=== PATIENT | female | born 1960 | race Caucasian/White ===

== ENCOUNTER → 2017-11-03 | Outpatient (CLI) | payer MEDICARE ==
--- NOTE | 2017-11-03 16:18 | RADIOLOGY REPORT (SQ) ---
EXAM DESCRIPTION: CT LUNG CANCER SCREENING COMPLETED DATE/TIME: 11/03/2017 1:53 pm REASON FOR STUDY: NICOTINE DEPENDENCE, CIGARETTES, UNCOMPLICATED F17.210 NICOTINE DEPENDENCE, CIGAR ETTES, UNCOMPLICATED Has the patient had a Chest CT scan within the past year? No Was the patient offered tobacco cessation counseling? Yes Was the patient engaged in shared decision making for this test? Does the patient have signs or symptoms of Lung Cancer? No Is the patient a smoker? Yes How many packs per year? 540 How many years since quitting smoking? Not applicable Patients age: 56 COMPARISON: None. TECHNIQUE: Low Dose CT scan performed of the chest without intravenous contrast for purposes of scre ening for lung cancer. Images reviewed with lung, soft tissue and bone windows. Reconstructed coron al and sagittal MPR images reviewed. All images stored on PACS. All CT scanners at this facility use dose modulation, iterative reconstruction, and/or weight based d osing when appropriate to reduce radiation dose to as low as reasonably achievable (ALARA). [facility]: Dose Right [facility]: CareDose [facility]: Dose Right [facility]: Teradose 4D [facility]: Smart Site Tour RADIATION DOSE: CT Rad equipment meets quality standard of care and radiation dose reduction techniq ues were employed. CTDIvol: 2.1 mGy. DLP: 74 mGy-cm. mGy. . LIMITATIONS: None FINDINGS: LUNGS AND PLEURA: No masses or nodules. No pleural effusions or calcifications. No pne umothorax. No significant scarring or interstitial changes. HILAR AND MEDIASTINAL STRUCTURES: No identified masses. No abnormal nodes. HEART AND VASCULAR STRUCTURES: No aortic aneurysm. No pericardial effusion. No cardiac devices. CORONARY ARTERY CALCIFICATIONS: No significant calcifications. UPPER ABDOMEN, THYROID, BONES, OTHER SOFT TISSUES: No significant findings. IMPRESSION: NO SIGNIFICANT FINDING IN THE LUNGS ON NON-CONTRASTED CHEST CT. NO OTHER CLINICALLY SIGNIFICANT/POTENTIALLY CLINICALLY SIGNIFICANT FINDINGS LUNGRADS: LUNGRADS: 1 NEGATIVE. NO NODULES, OR DEFINITELY BENIGN NODULES MODIFIER: NONE RECOMMENDATION: Continue annual screening with LDCT in 12 months. COMMENT: CRITERIA: No lung nodules. Nodules with specific calcifications: Complete, central, popcorn, concentric rings and fat containin g nodules. TECHNICAL DOCUMENTATION: JOB ID: [id number] Quality ID # 436: Final reports with documentation of one or more dose reduction techniques (e.g., Au tomated exposure control, adjustment of the mA and/or kV according to patient size, use of iterative reconstruction technique) 2010 [facility] Radiology Reading location - IP/workstation name: [email or web address]
== END ==
LOC: RAD 13:42
PROVIDERS: ATTEND Internal Medicine
DX: F17.210 Nicotine dependence, cigarettes, uncomplicated (principal)
CPT/HCPCS: G0297

== ENCOUNTER 2018-04-24 03:34 | Inpatient (IN) | payer MEDICARE ==
--- NOTE | 2018-04-24 04:47 | RADIOLOGY REPORT (SQ) ---
EXAM DESCRIPTION: XR CHEST 2 VIEWS COMPLETED DATE/TME: 04/24/2018 04:12 CLINICAL HISTORY: 57 years, Female, cough, hemoptysis COMPARISON: None. NUMBER OF VIEWS: 2 TECHNIQUE: Frontal and lateral views of the chest LIMITATIONS: None. FINDINGS: The heart size is normal. Postsurgical change of the cervical spine. Lungs are clear. No pneumothorax IMPRESSION: No acute cardiopulmonary process copyright 2010 [employer]- All Rights Reserved
[2018-04-24 05:03] LABS: ABSOLUTE BASOPHILS # (AUTO) 0.1 10^3/uL (0.0-0.2); ABSOLUTE EOSINOPHILS # (AUTO) 0.1 10^3/uL (0.0-0.6); ABSOLUTE LYMPHOCYTES (AUTO) 1.8 10^3/uL (0.5-4.7); ABSOLUTE MONOCYTES (AUTO) 0.7 10^3/uL (0.1-1.4); BASOPHILS % (AUTO) 0.9 % (0-2); EOSINOPHILS % (AUTO) 1.3 % (0-6); HEMATOCRIT 37.9 % (36.0-47.0); HEMOGLOBIN 13.3 g/dL (12.0-15.5); LYMPHOCYTES % (AUTO) 26.7 % (13-45); MEAN CORPUSCULAR HEMOGLOBIN 34.3 pg (27.0-33.4); MEAN CORPUSCULAR HGB CONC 35.2 g/dL (32.0-36.0); MEAN CORPUSCULAR VOLUME 97 fl (80-97); MONOCYTES % (AUTO) 10.7 % (3-13); PLATELET COUNT 279 10^3/uL (150-450); RED BLOOD COUNT 3.89 10^6/uL (3.72-5.28); RED CELL DISTRIBUTION WIDTH 13.5 % (11.5-14.0); SEGMENTED NEUTROPHILS % (AUTO) 60.4 % (42-78); TOTAL CELLS COUNTED % (AUTO) 100 %; WHITE BLOOD COUNT 6.6 10^3/uL (4.0-10.5)
[2018-04-24 05:46] LABS: ANION GAP 12 (5-19); BLOOD UREA NITROGEN 20 mg/dL (7-20); CALCIUM 9.4 mg/dL (8.4-10.2); CARBON DIOXIDE 31 mmol/L (22-30); CHLORIDE 97 mmol/L (98-107); GLUCOSE 112 mg/dL (75-110); POTASSIUM 3.7 mmol/L (3.6-5.0)
[2018-04-24] MEDS ORDERED: IPRATROPIUM/ALBUTEROL 0.5-2.5 MG/3 ML AMPUL NEB ONE (06:00)
--- NOTE | 2018-04-24 06:28 | ER Document Report ---
ED General - General Chief Complaint: Cough Stated Complaint: COUGHING BLOOD Time Seen by Provider: 04/24/18 04:12 Mode of Arrival: Ambulatory Information source: Patient Notes: Patient is a 57-year-old female who presents to the emergency department today with chief complaint of coughing up blood. Patient reports that a few hours prior to arrival she coughed up bright red blood. She states that she has a history of COPD, states that over the last several days she has had a productive cough. Denies any fevers. Denies ever coughing up blood previously. Patient denies any chest pain. TRAVEL OUTSIDE OF THE [place] IN LAST 30 DAYS: No - Related Data Allergies/Adverse Reactions: No Known Allergies Allergy (Unverified 04/24/18 03:38) Past Medical History - General Information source: Patient - Social History Smoking Status: Current Every Day Smoker Chew tobacco use (# tins/day): No Frequency of alcohol use: Social Drug Abuse: None Family History: Reviewed & Not Pertinent Patient has suicidal ideation: No Patient has homicidal ideation: No - Past Medical History Cardiac Medical History: Reports: Hx Hypertension Pulmonary Medical History: Reports: Hx COPD Renal/ Medical History: Denies: Hx Peritoneal Dialysis Past Surgical History: Reports: Hx Hysterectomy, Hx Orthopedic Surgery - 2 discs in neck, Hx Tubal Ligation Review of Systems - Review of Systems Respiratory: Cough, Hemoptysis -: Yes All other systems reviewed and negative Physical Exam - Vital signs Vitals: Temp Pulse Resp BP Pulse Ox 97.9 F 108 H 20 150/72 H 94 04/24/18 03:41 04/24/18 03:41 04/24/18 03:41 04/24/18 03:41 04/24/18 03:41 - Notes Notes: PHYSICAL EXAMINATION: GENERAL: Well-appearing, well-nourished and in no acute distress. HEAD: Atraumatic, normocephalic. EYES: Pupils equal round and reactive to light, extraocular movements intact, conjunctiva are normal. ENT: Nares patent, oropharynx clear without exudates. Moist mucous membranes. NECK: Normal range of motion, supple without lymphadenopathy LUNGS: Mild expiratory wheezes noted bilaterally. No respiratory distress noted , no increased work of breathing. HEART: Regular rate and rhythm without murmurs ABDOMEN: Soft, nontender, nondistended abdomen. No guarding, no rebound. No masses appreciated. Female : No CVA tenderness Musculoskeletal: Normal range of motion, no pitting or edema. No cyanosis. NEUROLOGICAL: Cranial nerves grossly intact. Normal speech, normal gait. Normal sensory, motor exams PSYCH: Normal mood, normal affect. SKIN: Warm, Dry, normal turgor, no rashes or lesions noted. Course - Re-evaluation Re-evalutation: 04/24/18 06:23 CBC and chemistry are unremarkable. Chest x-ray with no acute findings. Patient now has bring in the bloody napkin from the car in which she had coughed up the blood into. There is probably 15 mL's of blood in the napkin. Nursing staff did place patient on 2 L of oxygen via nasal cannula. They stated that her oxygen saturation had dropped to 88% while asleep. Pulse ox currently ranging 93-96% on 2 L nasal cannula. Discussed case with Dr. Yanique Mcconnell who recommends performing a CTA to rule out an acute hemorrhage. Patient updated on plan of care and is agreeable to same. 04/24/18 07:14 No acute hemorrhage noted on CTA. There were groundglass opacities noted and imaging was consistent with pneumonitis. I contacted Dr. Griggs the patient' s primary care provider who agrees to admit the patient to the IMCU. - Vital Signs Vital signs: Temp Pulse Resp BP Pulse Ox 97.9 F 108 H 20 150/72 H 94 04/24/18 03:41 04/24/18 03:41 04/24/18 03:41 04/24/18 03:41 04/24/18 03:41 - Laboratory Result Diagrams: 04/24/18 04:42 04/24/18 04:42 Laboratory results interpreted by me: 04/24/18 04/24/18 04:42 04:42 [facility] 34.3 H Chloride 97 L Carbon Dioxide 31 H Glucose 112 H Discharge - Discharge Clinical Impression: COPD exacerbation, Pneumonitis, Oxygen requirement Condition: Stable Disposition: ADMITTED INPATIENT Admitting Provider: Asa Unit Admitted: [facility] Referrals: CECIL GRIGGS MD [Primary Care Provider] - Follow up as needed
--- NOTE | 2018-04-24 06:56 | RADIOLOGY REPORT (SQ) ---
EXAM DESCRIPTION: CT CHEST ANGIOGRAPHY WITHOUT THEN WITH IV CONTRAST COMPLETED DATE/TME: 04/24/2018 06:16 CLINICAL HISTORY: 57 years, Female, hemoptysis COMPARISON: None. TECHNIQUE: 550 Images stored on PACS. All CT scanners at this facility use dose modulation, iterative reconstruction, and/or weight based dosing when appropriate to reduce radiation dose to as low as reasonably achievable (ALARA). [facility]: Dose Right [facility]: CareDose [facility]: Dose Right [facility]: Teradose 4D [facility]: [employer] LIMITATIONS: None. FINDINGS: The mediastinal vasculature enhances normally however there is a suboptimal contrast bolus of the pulmonary arterial tree. No large or central pulmonary embolus. Evaluation of distal arterial branches is significantly limited. Negative for thoracic aortic aneurysm or dissection. No mediastinal or hilar adenopathy. Small hiatal hernia. Heart and pericardium are unremarkable. Limited evaluation of the upper abdomen shows fatty infiltrate of change to the liver. Bilateral renal cortical scar formation. Osseous structures are grossly intact. No pneumothorax. Airspace opacities in the perihilar regions bilaterally and in the left upper lobe where there is some associated bronchiectasis and bronchial wall thickening. No effusion. No pneumothorax IMPRESSION: Suboptimal contrast bolus however no convincing evidence for pulmonary embolus. Negative for thoracic aortic aneurysm or dissection. Groundglass opacities bilaterally with bronchiectasis and bronchial wall thickening in the left upper lobe. Findings likely reflect pneumonitis. Recommend follow-up to resolution. TECHNICAL DOCUMENTATION: Quality ID # 436: Final reports with documentation of one or more dose reduction techniques (e.g., Automated exposure control, adjustment of the mA and/or kV according to patient size, use of iterative reconstruction technique) copyright 2011 [employer]- All Rights Reserved
[2018-04-24] MEDS ORDERED: METHYLPREDNISOLONE INJ 125 MG/2 ML SDV IV ONE (07:04)
[2018-04-24] MEDS ORDERED: OXYCODONE-ACETAMINOPHEN 5-325 MG TABLET PO ONE (07:24)
[2018-04-24] MEDS ORDERED: ALBUTEROL SULFATE 0.083% NEB 2.5 MG/3 ML AMPUL NEB PRN (08:20)
--- NOTE | 2018-04-24 09:10 | EKG REPORT ---
SEVERITY:- NORMAL ECG - SINUS RHYTHM : Confirmed by: Katherine Llanes 24-Apr-2018 09:09:40
[2018-04-24 10:11] LABS: ARTERIAL BLOOD BASE EXCESS 2.3 mmol/L; ARTERIAL BLOOD H2CO3 1.23 mmol/L (1.05-1.35); ARTERIAL BLOOD HCO3 26.7 mmol/L (20-24); ARTERIAL BLOOD O2 SATURATION 95.5 % (94-98); ARTERIAL BLOOD PCO2 40.7 mmHg (35-45); ARTERIAL BLOOD PH 7.44 (7.35-7.45); ARTERIAL BLOOD PO2 75.2 mmHg (80-100)
[2018-04-24 10:12] LABS: ARTERIAL BLOOD FIO2 2L
[2018-04-24] MEDS ORDERED: CEFTRIAXONE 1 GM/D5W RTU 1 GM/50 ML RTUPB IV SCH (11:00)
[2018-04-24] MEDS: ENOXAPARIN SODIUM INJ 40 MG/0.4 ML DISP.SYRIN SUBCUT SCH (11:28)
[2018-04-24] MEDS: IPRATROPIUM BROMIDE 0.02% NEB 0.5 MG/2.5 ML AMPUL NEB SCH ×5 (11:29→22:36)
[2018-04-24] MEDS ORDERED: (PENDING PHARMACY ID) (Amlodipine Besylate/Benazepril [Amlodipine-Benazepril 10-40 Mg] 1 C PO SCH (13:15)
[2018-04-24] MEDS: LEVOFLOXACIN 750 MG/D5W RTU 750 MG/150 ML RTUPB IV SCH (13:42)
[2018-04-24] MEDS: BENAZEPRIL HCL 10 MG TABLET PO SCH (15:19)
[2018-04-24] MEDS: METHADONE HCL 10 MG TABLET PO SCH ×2 (15:20→21:49)
[2018-04-24] MEDS: AMLODIPINE BESYLATE 10 MG TABLET PO SCH (15:20)
[2018-04-24] MEDS: OXYCODONE-ACETAMINOPHEN 5-325 MG TABLET PO PRN (18:43)
[2018-04-24] MEDS: NORMAL SALINE 1000 ML 1,000 ML IV PRN (18:44)
[2018-04-24] MEDS ORDERED: ZOLPIDEM TARTRATE 5 MG TABLET PO PRN (20:46)
[2018-04-24] MEDS: GABAPENTIN 300 MG CAPSULE PO SCH (21:49)
--- NOTE | 2018-04-24 21:59 | PDOC H&P ---
History of Present Illness Admission Date/PCP: 04/24/18 07:28 CECIL GRIGGS MD History of Present Illness: REZA SMITH is a 57 year old female, A smoker, she came to the emergency room for evaluation of 2-day history of hemoptysis, CTA chest was done, negative for pulmonary embolus but it demonstrated bronchiectasis with bilateral groundglass opacities that suggest pneumonitis.ABG on FiO2 of 2l pH 7.4, PO2 75.2 bicarbonate 26.7,PCO2 40.7.PaO2/ FiO2 ratio is less than 200 suggesting significant hypoxemia Past Medical History Cardiac Medical History: Reports: Hypertension Pulmonary Medical History: Reports: Chronic Obstructive Pulmonary Disease (COPD) Psychiatric Medical History: Reports: Depression Past Surgical History Past Surgical History: Reports: Hysterectomy, Orthopedic Surgery - 2 discs in neck, Tubal Ligation Social History Smoking Status: Current Every Day Smoker Frequency of Alcohol Use: Rare Hx Recreational Drug Use: No Hx Prescription Drug Abuse: No - Advance Directive Resuscitation Status: Full Code Family History Family History: Reviewed & Not Pertinent Parental Family History Reviewed: Yes Children Family History Reviewed: Yes Sibling(s) Family History Reviewed.: Yes Medication/Allergy Home Medications: Amlodipine Besylate/Benazepril [Amlodipine-Benazepril 10-40 mg] 1 cap PO DAILY 04/24/18 Gabapentin [Neurontin 300 mg Capsule] 300 mg PO QHS 04/24/18 Methadone HCl [Dolophine 10 Mg Tablet] 10 mg PO TID 04/24/18 RX: Fluoxetine HCl [Prozac] 40 mg PO DAILY 04/24/18 RX: Omeprazole 20 mg PO DAILY 04/24/18 RX: Oxycodone HCl/Acetaminophen [Percocet 5-325 mg Tablet] 1 tab PO Q6HP PRN 08/07 Allergies/Adverse Reactions: No Known Allergies Allergy (Unverified 04/24/18 03:38) Review of Systems Constitutional: ABSENT: chills, fever(s), headache(s), weight gain, weight loss Eyes: ABSENT: visual disturbances Ears: ABSENT: hearing changes Cardiovascular: ABSENT: chest pain, dyspnea on exertion, edema, orthropnea, palpitations Respiratory: PRESENT: cough, dyspnea, hemoptysis Gastrointestinal: ABSENT: abdominal pain, constipation, diarrhea, hematemesis, hematochezia, nausea, vomiting Genitourinary: ABSENT: dysuria, hematuria Musculoskeletal: ABSENT: joint swelling Integumentary: ABSENT: rash, wounds Neurological: ABSENT: abnormal gait, abnormal speech, confusion, dizziness, focal weakness, syncope Psychiatric: ABSENT: anxiety, depression, homidical ideation, suicidal ideation Endocrine: ABSENT: cold intolerance, heat intolerance, menstrual abnormalities, polydipsia, polyuria Hematologic/Lymphatic: ABSENT: easy bleeding, easy bruising, lymphadenopathy Physical Exam Vital Signs: Temp Pulse Resp BP Pulse Ox 97.9 F 87 20 134/68 H 97 04/24/18 20:54 04/24/18 20:54 04/24/18 20:54 04/24/18 20:54 04/24/18 20:54 Intake & Output 04/23/18 04/24/18 04/25/18 06:59 06:59 06:59 Intake Total 400 Balance 400 Weight 74.3 kg General appearance: PRESENT: no acute distress Head exam: PRESENT: atraumatic, normocephalic Eye exam: PRESENT: PERRLA Mouth exam: PRESENT: moist Neck exam: PRESENT: full ROM Respiratory exam: PRESENT: crackles, rhonchi Cardiovascular exam: PRESENT: +S1, +S2 Vascular exam: PRESENT: normal capillary refill GI/Abdominal exam: PRESENT: normal bowel sounds, soft Rectal exam: PRESENT: deferred Neurological exam: PRESENT: alert, CN II-XII grossly intact Psychiatric exam: PRESENT: appropriate affect, normal mood Skin exam: PRESENT: dry, intact, warm Results Laboratory Results: 04/24/18 09:48 Carbonic Acid 1.23 HCO3/H2CO3 Ratio 21:1 ABG pH 7.44 ABG pCO2 40.7 ABG pO2 75.2 L ABG HCO3 26.7 H ABG O2 Saturation 95.5 ABG Base Excess 2.3 FiO2 2L 04/24/18 09:48 CK-MB (CK-2) 1.09 Impressions: Chest X-Ray 04/24/18 04:12 IMPRESSION: No acute cardiopulmonary process copyright 2011 [employer]- All Rights Reserved Chest/Abdomen CTA 04/24/18 06:16 IMPRESSION: Suboptimal contrast bolus however no convincing evidence for pulmonary embolus. Negative for thoracic aortic aneurysm or dissection. Groundglass opacities bilaterally with bronchiectasis and bronchial wall thickening in the left upper lobe. Findings likely reflect pneumonitis. Recommend follow-up to resolution. TECHNICAL DOCUMENTATION: Quality ID # 436: Final reports with documentation of one or more dose reduction techniques (e.g., Automated exposure control, adjustment of the mA and/or kV according to patient size, use of iterative reconstruction technique) copyright 2011 [employer]- All Rights Reserved Assessment & Plan - Diagnosis (1) Pneumonitis Is this a current diagnosis for this admission?: Yes Plan: Start IV antibiotic to cover acquired pneumonia, the hemoptysis is most likely due to pneumonia (2) Bronchiectasis Qualifiers: Bronchiectasis type: with acute exacerbation Qualified Code(s): J47.1 - Bronchiectasis with (acute) exacerbation Is this a current diagnosis for this admission?: Yes (3) Nicotine dependence, cigarettes, uncomplicated Is this a current diagnosis for this admission?: Yes
[2018-04-25] MEDS: IPRATROPIUM BROMIDE 0.02% NEB 0.5 MG/2.5 ML AMPUL NEB SCH ×8 (02:16→22:47)
[2018-04-25] MEDS: LANSOPRAZOLE 15 MG TAB.RAP.DR PO SCH (05:29)
[2018-04-25] MEDS: METHADONE HCL 10 MG TABLET PO SCH ×3 (05:29→21:17)
[2018-04-25] MEDS: BENAZEPRIL HCL 10 MG TABLET PO SCH (09:06)
[2018-04-25] MEDS: ENOXAPARIN SODIUM INJ 40 MG/0.4 ML DISP.SYRIN SUBCUT SCH (09:06)
[2018-04-25] MEDS: FLUOXETINE HCL 20 MG CAPSULE PO SCH (09:07)
[2018-04-25] MEDS: NORMAL SALINE 1000 ML 1,000 ML IV PRN (09:07)
[2018-04-25] MEDS: CEFTRIAXONE SODIUM 1,000 MG in DEXTROSE 5%-WATER 50 ML IV SCH (09:07)
[2018-04-25] MEDS: AMLODIPINE BESYLATE 10 MG TABLET PO SCH (09:07)
[2018-04-25] MEDS: OXYCODONE-ACETAMINOPHEN 5-325 MG TABLET PO PRN ×2 (09:18→16:10)
[2018-04-25] MEDS: LEVOFLOXACIN 750 MG/D5W RTU 750 MG/150 ML RTUPB IV SCH (12:31)
--- NOTE | 2018-04-25 19:44 | PDOC PROGRESS REPORT ---
Subjective Progress Note for:: 04/25/18 Subjective:: Patient was admitted yesterday for evaluation and management of hemoptysis, she has less cough today. Reason For Visit: PNEUMONIA,HEMOPTYSIS,COPD Physical Exam Vital Signs: Temp Pulse Resp BP Pulse Ox 97.4 F 92 16 135/64 H 97 04/25/18 16:14 04/25/18 16:14 04/25/18 16:14 04/25/18 16:14 04/25/18 16:14 Intake & Output 04/24/18 04/25/18 04/26/18 06:59 06:59 06:59 Intake Total 400 2816 Output Total 3 Balance 400 2813 Weight 74.3 kg 76.8 kg General appearance: PRESENT: no acute distress Eye exam: PRESENT: PERRLA Respiratory exam: PRESENT: crackles, rhonchi Cardiovascular exam: PRESENT: +S1, +S2 GI/Abdominal exam: PRESENT: soft Neurological exam: PRESENT: alert, CN II-XII grossly intact Results Laboratory Results: 04/24/18 09:48 CK-MB (CK-2) 1.09 Impressions: Chest X-Ray 04/24/18 04:12 IMPRESSION: No acute cardiopulmonary process copyright 2011 [employer]- All Rights Reserved Chest/Abdomen CTA 04/24/18 06:16 IMPRESSION: Suboptimal contrast bolus however no convincing evidence for pulmonary embolus. Negative for thoracic aortic aneurysm or dissection. Groundglass opacities bilaterally with bronchiectasis and bronchial wall thickening in the left upper lobe. Findings likely reflect pneumonitis. Recommend follow-up to resolution. TECHNICAL DOCUMENTATION: Quality ID # 436: Final reports with documentation of one or more dose reduction techniques (e.g., Automated exposure control, adjustment of the mA and/or kV according to patient size, use of iterative reconstruction technique) copyright 2011 [employer]- All Rights Reserved Assessment & Plan - Diagnosis (1) Pneumonitis Is this a current diagnosis for this admission?: Yes Plan: Continue antibiotic (2) Bronchiectasis Qualifiers: Bronchiectasis type: with acute exacerbation Qualified Code(s): J47.1 - Bronchiectasis with (acute) exacerbation Is this a current diagnosis for this admission?: Yes (3) Nicotine dependence, cigarettes, uncomplicated Is this a current diagnosis for this admission?: Yes
[2018-04-25] MEDS: GABAPENTIN 300 MG CAPSULE PO SCH (21:17)
[2018-04-26] MEDS: IPRATROPIUM BROMIDE 0.02% NEB 0.5 MG/2.5 ML AMPUL NEB SCH ×5 (02:25→14:44)
[2018-04-26] MEDS: METHADONE HCL 10 MG TABLET PO SCH ×2 (05:35→13:14)
[2018-04-26] MEDS: LANSOPRAZOLE 15 MG TAB.RAP.DR PO SCH (05:36)
[2018-04-26] MEDS: BENAZEPRIL HCL 10 MG TABLET PO SCH (10:27)
[2018-04-26] MEDS: CEFTRIAXONE SODIUM 1,000 MG in DEXTROSE 5%-WATER 50 ML IV SCH (10:27)
[2018-04-26] MEDS: ENOXAPARIN SODIUM INJ 40 MG/0.4 ML DISP.SYRIN SUBCUT SCH (10:27)
[2018-04-26] MEDS: AMLODIPINE BESYLATE 10 MG TABLET PO SCH (10:27)
[2018-04-26] MEDS: FLUOXETINE HCL 20 MG CAPSULE PO SCH (10:27)
[2018-04-26] MEDS: OXYCODONE-ACETAMINOPHEN 5-325 MG TABLET PO PRN (10:33)
[2018-04-26] MEDS: LEVOFLOXACIN 750 MG/D5W RTU 750 MG/150 ML RTUPB IV SCH (12:36)
[2018-04-26] MEDS ORDERED: LEVOFLOXACIN 750 MG TABLET PO SCH (13:00)
--- NOTE | 2018-04-26 15:03 | PDOC DISCHARGE SUMMARY ---
General - Admit/Disc Date/PCP Admission Date/Primary Care Provider: 04/24/18 07:28 CECIL GRIGGS MD Discharge Date: 04/26/18 - Discharge Diagnosis (1) Pneumonitis Is this a current diagnosis for this admission?: Yes (2) Bronchiectasis Is this a current diagnosis for this admission?: Yes (3) Nicotine dependence, cigarettes, uncomplicated Is this a current diagnosis for this admission?: Yes - Additional Information Resuscitation Status: Full Code Prescriptions: Alprazolam [Xanax] 1 mg PO BID #60 tablet Levofloxacin [Levaquin 750 mg Tablet] 750 mg PO DAILY #10 tablet Home Medications: Amlodipine Besylate/Benazepril [Amlodipine-Benazepril 10-40 mg] 1 cap PO DAILY 04/24/18 Fluoxetine HCl [Prozac] 40 mg PO DAILY 04/24/18 Gabapentin [Neurontin 300 mg Capsule] 300 mg PO QHS 04/24/18 Methadone HCl [Dolophine 10 mg Tablet] 10 mg PO TID 04/24/18 Omeprazole 20 mg PO DAILY 04/24/18 Oxycodone HCl/Acetaminophen [Percocet 5-325 mg Tablet] 1 tab PO Q6HP PRN Alprazolam [Xanax] 1 mg PO BID #60 tablet 04/26/18 Levofloxacin [Levaquin 750 mg Tablet] 750 mg PO DAILY #10 tablet 04/26/18 History of Present Illness History of Present Illness: REZA SMITH is a 57 year old female, A smoker, she came to the emergency room for evaluation of 2-day history of hemoptysis, CTA chest was done, negative for pulmonary embolus but it demonstrated bronchiectasis with bilateral groundglass opacities that suggest pneumonitis.ABG on FiO2 of 2l pH 7.4, PO2 75.2 bicarbonate 26.7,PCO2 40.7.PaO2/ FiO2 ratio is less than 200 suggesting significant hypoxemia Hospital Course Hospital Course: Patient was admitted for the management of pneumonia, she was treated with IV antibiotic, Levaquin and ceftriaxone. She has underlying bronchiectasis and COPD, a vivid smoker. She responded to antibiotic, she improved in 24 hours of admission, she is been discharged home today to continue p.o. medication she was advised strongly of the need for complete smoking cessation. Physical Exam Vital Signs: Temp Pulse Resp BP Pulse Ox 98.2 F 99 16 123/66 93 04/26/18 09:02 04/26/18 14:45 04/26/18 14:45 04/26/18 09:02 04/26/18 14:45 Intake & Output 04/25/18 04/26/18 04/27/18 06:59 06:59 06:59 Intake Total 400 2816 600 Output Total 3 1 Balance 400 2813 599 Weight 74.3 kg 77 kg General appearance: PRESENT: no acute distress, well-developed, well-nourished Head exam: PRESENT: atraumatic, normocephalic Eye exam: PRESENT: conjunctiva pink, EOMI, PERRLA Ear exam: PRESENT: normal external ear exam Mouth exam: PRESENT: moist, tongue midline Neck exam: PRESENT: full ROM Respiratory exam: PRESENT: clear to auscultation dale Cardiovascular exam: PRESENT: RRR, +S1, +S2 Pulses: PRESENT: normal dorsalis pedis pul, +2 pedal pulses bilateral Vascular exam: PRESENT: normal capillary refill GI/Abdominal exam: PRESENT: normal bowel sounds, soft Rectal exam: PRESENT: deferred Neurological exam: PRESENT: alert, CN II-XII grossly intact Psychiatric exam: PRESENT: appropriate affect, normal mood Skin exam: PRESENT: dry, intact, warm Results Laboratory Results: 04/24/18 09:48 CK-MB (CK-2) 1.09 Impressions: Chest X-Ray 04/24/18 04:12 IMPRESSION: No acute cardiopulmonary process copyright 2010 [employer]- All Rights Reserved Chest/Abdomen CTA 04/24/18 06:16 IMPRESSION: Suboptimal contrast bolus however no convincing evidence for pulmonary embolus. Negative for thoracic aortic aneurysm or dissection. Groundglass opacities bilaterally with bronchiectasis and bronchial wall thickening in the left upper lobe. Findings likely reflect pneumonitis. Recommend follow-up to resolution. TECHNICAL DOCUMENTATION: Quality ID # 436: Final reports with documentation of one or more dose reduction techniques (e.g., Automated exposure control, adjustment of the mA and/or kV according to patient size, use of iterative reconstruction technique) copyright 2010 [employer]- All Rights Reserved Qualifiers - * PATIENT BEING DISCHARGED WITH ANY OF THE FOLLOWING DIAGNOSIS: No
[2018-04-26 15:04] VITALS: BP 143/73
== END 2018-04-26 15:44 | disposition home or self-care (01) | DRG 194 ==
LOC: ER 03:34 → EH 07:28 → 3W 17:53
PROVIDERS: ADMIT Internal Medicine; ATTEND Internal Medicine
DX: J18.9 Pneumonia, unspecified organism (principal); R04.2 Hemoptysis; J47.1 Bronchiectasis with (acute) exacerbation; I10 Essential (primary) hypertension; F17.210 Nicotine dependence, cigarettes, uncomplicated
CPT/HCPCS: 36415; 71046; 71275; 80048; 82553; 82803; 85025; 87040; 87186; 90686; 93005; 93010; 94640; 99285; J0696; J1650; J1956; J2930; J3490; J7030; J7620